=== PATIENT | male | born 1960 | race Two or more races ===

== ENCOUNTER 2017-02-10 16:03 | Inpatient (IN) | payer MEDICAID ==
[~2017-02-10] VITALS: Ht 160 cm; Wt 71.1 kg
[2017-02-10] VITALS (8 sets, daily range): BP systolic 94–128; BP diastolic 62–84; PULSE 65–79; RESP 16–18; TEMP 97.5–98.1; O2SAT 98–100
[2017-02-10] MEDS ORDERED: PROPOFOL 1000 MG/100 ML INJ 100 ML IV SCH (16:15)
--- NOTE | 2017-02-10 17:00 | RADRPT ---
EXAM DATE/TIME: 02/10/2017 16:49 [facility] COMPARISON: No previous studies available for comparison. INDICATIONS : Stroke Alert- Headaches with seizures. RADIATION DOSE: 38.54 CTDIvol (mGy) This report was called [place] [id number] MEDICAL HISTORY : Non-responsive. SURGICAL HISTORY : Non-responsive. ENCOUNTER: Initial ACUITY: 1 day PAIN SCALE: Non-responsive LOCATION: Bilateral cranial TECHNIQUE: Multiple contiguous axial images were obtained of the head. Using automated exposure control and adj ustment of the mA and/or kV according to patient size, radiation dose was kept as low as reasonably a chievable to obtain optimal diagnostic quality images. DICOM format image data is available electro nically for review and comparison. FINDINGS: There is extensive subarachnoid hemorrhage present especially around the basilar cisterns. CTA pendin g to assess for aneurysm. Mild ventricular dilatation. No acute bony abnormality. CONCLUSION: 1. Extensive subarachnoid hemorrhage. CTA pending to assess for aneurysm. Say Bassett MD on February 10, 2017 at 16:54 Board Certified Radiologist. This report was verified electronically.
--- NOTE | 2017-02-10 17:03 | HHI.HP ---
HPI Service Neurosurgery Primary Care Physician Unknown Chief Complaint: Unresponsive, intubated History of Present Illness Patient is a 54-year-old male transferred from [facility] for treatment of subarachnoid hemorrhage. The patient was reportedly at work this morning when he complained of a severe headache. He was taken to an office and given aspirin and some fluids. His mental status continued to decline. He was intubated by EMS in route to the emergency room with seizure activity and decerebrate posturing reported. He was GCS 3 in the [facility] emergency room initially with pupils reportedly 5 mm nonreactive. The patient reportedly began flexing or localizing with his upper extremities at some point in time in the emergency room. He was given 1000 mg of Keppra. Patient's blood pressure was 200/129 initially in the emergency room. The patient's initial CT of the head revealed a large amount of diffuse subarachnoid hemorrhage. He was transferred to [facility] Emergency room for further evaluation. Past Family Social History Allergies: Coded Allergies: No Known Allergies (Unverified , 02/10/17) Physical Exam Vital Signs Vital Signs Date Time Temp Pulse Resp B/P Pulse Ox O2 Delivery O2 Flow Rate FiO2 02/10/17 16:35 16 100 Ventilator 40 02/10/17 16:14 98.1 79 16 128/84 100 02/10/17 16:08 98 40 Physical Exam GENERAL: This is a well-nourished, well-developed patient, intubated and sedated on propofol. SKIN: No abrasions, contusion, rash noted. Skin warm and dry. HEAD: Atraumatic. Normocephalic. No scalp lacerations EYES: Sclerae are clear and nonicteric. Fundi not well seen. Bilateral cataracts. ENT: No facial edema or ecchymosis. No periorbital edema. No CSF otorrhea or rhinorrhea. No palpable facial fracture or deformity. Tympanic membranes are clear. Patient is intubated. Dentition appear intact. NECK: Trachea midline. No nuchal rigidity CARDIOVASCULAR: Regular rate and rhythm without murmurs, gallops, or rubs. RESPIRATORY: Clear to auscultation. Breath sounds equal bilaterally. No wheezes , rales, or rhonchi. GASTROINTESTINAL: Abdomen soft, positive bowel sounds, nondistended. No hepato- splenomegaly, or palpable masses. MUSCULOSKELETAL: Extremities without cyanosis, or edema. No joint tenderness, or edema noted. Dorsalis pedis pulses 2+ bilateral NEUROLOGICAL: Intubated, sedated on propofol. No response to voice. Does not follow commands Pupils 2 mm nonreactive Absent oculocephalic responses Mild bilateral corneal response Minimal facial grimacing to deep pain Mild cough response was suctioning Mild flexion left greater than right upper extremity to deep chest pain. No movement upper and lower extremities to extremity deep pain stimulation. Mary Ellen's response absent bilateral No ankle clonus Laboratory Imaging 02/10/2017 CT scan head [facility] images are reviewed. This study reveals a large amount of diffuse subarachnoid hemorrhage in the basilar and perimesencephalic cisterns and bilateral sylvian fissure with relatively mild hydrocephalus. 02/10/2017 CT angiogram and follow-up CT scan of the head images reviewed. Agree with findings as noted below: Neck CTA 02/10/17 1622 Signed Impressions: Service Date/Time: February 16:53 - CONCLUSION: 1. ET tube appears to terminate at the sofi. 2. No significant flow-limiting carotid artery stenosis or dissection. 3. Asymmetric vertebral arteries with slightly larger caliber left vertebral artery. There is likely moderate stenosis of the distal right vertebral artery near the vertebrobasilar junction with poststenotic dilatation rather than aneurysm. Roberto Esquivel MD Head CTA 02/10/17 0000 Signed Impressions: Service Date/Time: February 16:53 - CONCLUSION: 1. No evidence for large vessel occlusion. 2. Asymmetric distal vertebral arteries with small caliber right vertebral artery which is tortuous distally with apparent moderate stenosis. However, there is a 5 x 7 mm fusiform dilatation of the vertebral artery just beyond the focal stenosis which appears more prominent on this examination compared with the carotid CTA examination and is more than expected for simple poststenotic dilatation and therefore concerning for aneurysm. Further evaluation may be performed with cerebral angiography as indicated. Roberto Esquivel MD Head CT 02/10/17 0000 Signed Impressions: Service Date/Time: February 16:49 - CONCLUSION: 1. Extensive subarachnoid hemorrhage. CTA pending to assess for aneurysm. Say Bassett MD Assessment and Plan Assessment and Plan Impression: 1. Rather severe diffuse subarachnoid hemorrhage. Fusiform vertebral artery dilation. No other definite aneurysm noted. Plan: Admit intensive surgical care unit Continue ventilatory support Continue intravenous sedation Continue antihypertensive medications including nicardipine as needed for control of blood pressure, titrate for systolic blood pressure 110-130 Plan cerebral angiogram. Will discuss with neuroradiology Nimodipine for vasospasm prophylaxis [facility] seizure prophylaxis Dex Jimenez MD Feb 10, 2017 17:03
[2017-02-10] MEDS ORDERED: IOHEXOL 350 MG/ML 10 ML VIAL (for RAD DIAG) IV ONE (17:06)
--- NOTE | 2017-02-10 17:38 | RADRPT ---
EXAM DATE/TIME: 02/10/2017 16:53 [facility] COMPARISON: No previous studies available for comparison. INDICATIONS : Stroke Alert-Patient with headaches. IV CONTRAST: 100 cc Omnipaque 350 (iohexol) IV RADIATION DOSE: 28.76 CTDIvol (mGy) ; Combined studies MEDICAL HISTORY : Non-responsive. SURGICAL HISTORY : Non-responsive. ENCOUNTER: Initial ACUITY: 1 day PAIN SCALE: Non-responsive LOCATION: Bilateral cranial Elevated flow velocities and ICA/CCA ratios have been found to correlate with increased degrees of vessel stenosis, calculated as percentage of diameter relative to a normal segment of distal ICA/CCA. TECHNIQUE: Volumetric scanning was performed using a multirow detector CT scanner. The data was post processed with a variety of visualization algorithms including full-volume maximum intensity projection, multip lanar sliding thin-slab reformation, curved-planar reformation, and surface-rendering techniques. Us ing automated exposure control and adjustment of the mA and/or kV according to patient size, radiatio n dose was kept as low as reasonably achievable to obtain optimal diagnostic quality images. DICOM f ormat image data is available electronically for review and comparison. FINDINGS: Patient is intubated and the ET tube appears to terminate at the sofi. Visualized lung apices are c lear. AORTIC ARCH: There is a three-vessel origin of the great vessels from the aorta. No evidence of ostial narrowing. RIGHT CAROTID: The common carotid artery is intact. The carotid bulb has a normal configuration without ulceration o r narrowing. The internal carotid artery lumen is smooth without stenosis. The external carotid tiesha ry is intact. LEFT CAROTID: The common carotid artery is intact. The carotid bulb has a normal configuration without ulceration or narrowing. The internal carotid artery lumen is smooth without stenosis. The external carotid ar ivonne is intact. VERTEBRALS: The vertebral arteries are slightly asymmetric with larger caliber left vertebral artery. There is ec centric moderate stenosis of the distal right vertebral artery near the vertebrobasilar junction with circumferential dilatation of the vertebral artery beyond this region most likely reflecting post st enotic dilatation. CONCLUSION: 1. ET tube appears to terminate at the sofi. 2. No significant flow-limiting carotid artery stenosis or dissection. 3. Asymmetric vertebral arteries with slightly larger caliber left vertebral artery. There is likely moderate stenosis of the distal right vertebral artery near the vertebrobasilar junction with postste notic dilatation rather than aneurysm. Roberto Esquivel MD on February 10, 2017 at 17:22 Board Certified Radiologist. This report was verified electronically.
[2017-02-10] MEDS ORDERED: NS + KCL 20 MEQ INJ 1,000 ML IV SCH (17:53)
--- NOTE | 2017-02-10 17:57 | RADRPT ---
EXAM DATE/TIME: 02/10/2017 16:53 [facility] COMPARISON: No previous studies available for comparison. INDICATIONS : Stroke Alert- Patient with headaches. IV CONTRAST: 100 cc Omnipaque 350 (iohexol) IV RADIATION DOSE: 28.76 CTDIvol (mGy) ; Combined studies MEDICAL HISTORY : Non-responsive. SURGICAL HISTORY : Non-responsive. ENCOUNTER: Initial ACUITY: 1 day PAIN SCALE: Non-responsive LOCATION: Bilateral cranial TECHNIQUE: Volumetric scanning was performed using a multi-row detector CT scanner. The data was post processed with a variety of visualization algorithms including full volume maximum intensity pr ojection, multi-planar sliding thin slab reformation, curved planar reformation, and surface renderin g techniques. Using automated exposure control and adjustment of the mA and/or kV according to patie nt size, radiation dose was kept as low as reasonably achievable to obtain optimal diagnostic quality images. DICOM format image data is available electronically for review and comparison. FINDINGS: Anterior circulation: Intracranial internal carotid arteries are patent. There is no evidence for ane urysm, vessel truncation or stenosis, and no evidence for vascular malformation. Posterior circulation: Asymmetric distal vertebral arteries with small caliber right vertebral artery . Somewhat tortuous distal right vertebral artery with apparent moderate stenosis distally. There is 5 x 7 mm fusiform dilatation of the vertebral artery just beyond the focal stenosis. This appears mor e prominent than the carotid CTA examination on MIP images and is slightly more than expected for pos t-stenotic dilatation. Otherwise, vertebral arteries are patent with flow extending into the basilar artery and bilateral posterior cerebral arteries. No evidence for large vessel occlusion or vascular malformation. CONCLUSION: 1. No evidence for large vessel occlusion. 2. Asymmetric distal vertebral arteries with small caliber right vertebral artery which is tortuous d istally with apparent moderate stenosis. However, there is a 5 x 7 mm fusiform dilatation of the vert ebral artery just beyond the focal stenosis which appears more prominent on this examination compared with the carotid CTA examination and is more than expected for simple poststenotic dilatation and th erefore concerning for aneurysm. Further evaluation may be performed with cerebral angiography as ind icated. Roberto Esquivel MD on February 10, 2017 at 17:49 Board Certified Radiologist. This report was verified electronically.
[2017-02-10] MEDS ORDERED: MAGNESIUM HYDROXIDE SUSP 30 ML CUP PO PRN (18:00)
[2017-02-10] MEDS ORDERED: LORazepam 2 MG/ML VIAL IVP PRN (18:00)
[2017-02-10] MEDS ORDERED: ACETAMINOPHEN 325 MG TAB PO PRN (18:00)
[2017-02-10] MEDS ORDERED: RESP: ALBUTEROL 2.5 MG/3 ML NEB (PRN) INH (18:00)
[2017-02-10] MEDS ORDERED: LORazepam 2 MG/ML VIAL IV PRN (18:00)
[2017-02-10] MEDS ORDERED: PANTOPRAZOLE SODIUM 40 MG VIAL IV SCH (18:00)
[2017-02-10] MEDS ORDERED: ONDANSETRON HCL 4 MG/2 ML VIAL IV PRN ×2 (18:00)
[2017-02-10] MEDS ORDERED: BISACODYL 10 MG SUPP RECTAL PRN (18:00)
[2017-02-10] MEDS ORDERED: LACTULOSE SYRUP 20 GM/30 ML CUP PO PRN (18:00)
[2017-02-10] MEDS ORDERED: LABETALOL HCL 100 MG/20 ML VIAL IV PRN (18:00)
[2017-02-10] MEDS ORDERED: CHLORHEXIDINE GLUCONATE 2 % 1 PACK (2 CLOTHS) TOP PRN (18:00)
[2017-02-10] MEDS ORDERED: SODIUM CHLORIDE 0.9% FLUSH 10 ML FLUSH IV FLUSH PRN ×2 (18:00)
[2017-02-10] MEDS ORDERED: MISCELLANEOUS NURSING INFORMATION XX SCH (18:00)
[2017-02-10] MEDS: niMODipine 30 MG CAP PO SCH ×2 (18:00→23:49)
[2017-02-10] MEDS ORDERED: SENNOSIDES 8.6 MG TAB PO PRN (18:00)
--- NOTE | 2017-02-10 18:00 | PD ---
HPI Chief Complaint: Neuro Symptoms/ Deficits Time Seen by Provider: 16:14 Travel History International Travel<30 days: No Contact w/Intl Traveler<30days: No Traveled to known affect area: No History of Present Illness HPI Patient of unknown identity was brought in by EMS as a transfer from [facility]. EMS was called because this patient suddenly became unresponsive and started to have a seizure at a grocery store. They called 911. When they arrived the patient was seizing and they also noticed that he was posturing. They decided to intubate him at the scene. They took him to the emergency room at [facility], [place]. They did an emergent CT scan which showed large amount of subarachnoid hemorrhage. The ER physician there spoke with the neurosurgeon Dr. Jimenez who accepted the patient. Patient remained unresponsive the entire time and he was brought in getting bagged by EMS. There is no family or friend with him. His blood pressure upon arrival was 125 systolic. He is on a propofol drip. [facility] Past Medical History Narrative Medical Unknown Social History Tobacco Use: No Allergies-Medications (Allergen,Severity, Reaction): Coded Allergies: No Known Allergies (Unverified , 02/10/17) Comments Unknown Narrative Medication Unknown Review of Systems Except as stated in HPI: all other systems reviewed are Neg Physical Exam Narrative GENERAL: Unresponsive, intubated, artificially ventilated SKIN: Focused skin assessment warm/dry. HEAD: Atraumatic. Normocephalic. EYES: Pupils equal and round. 3 mm and reactive to light. No scleral icterus. No injection or drainage. ENT: ET tube. No nasal bleeding or discharge. NECK: Trachea midline. No JVD. CARDIOVASCULAR: Regular rate and rhythm. No murmur appreciated. RESPIRATORY: No accessory muscle use. Clear to auscultation. Breath sounds equal bilaterally. GASTROINTESTINAL: Abdomen soft, non-tender, nondistended. Hepatic and splenic margins not palpable. MUSCULOSKELETAL: No obvious deformities. No clubbing. No cyanosis. No edema. NEUROLOGICAL: GCS of 3 PSYCHIATRIC: Unable to assess Data Data Last Documented VS Vital Signs Date Time Temp Pulse Resp B/P Pulse Ox O2 Delivery O2 Flow Rate FiO2 02/10/17 17:21 100 100 02/10/17 16:35 16 Ventilator 02/10/17 16:14 98.1 79 128/[address] Brain W/O Iv Contrast(Rout) (02/10/17 ) Cta Brain W Iv Contrast W 3d (02/10/17 ) Propofol 1000 Mg/100 Ml Inj (Diprivan 10 (02/10/17 16:15) ^ Infusion (02/10/17 16:15) RASS (02/10/17 16:15) Neurological Rass Scale BRIAN.Q2H (02/10/17 16:15) Cta Neck W Iv Contrast W 3d (02/10/17 16:22) Iohexol 350 Inj (Omnipaque 350 Inj) (02/10/17 17:06) Resp Ventilation- Pressure (02/10/17 ) Admit Order (Ed Use Only) (02/10/17 17:49) MDM Medical Decision Making Medical Screen Exam Complete: Yes Emergency Medical Condition: Yes Medical Record Reviewed: Yes Differential Diagnosis Subarachnoid hemorrhage Narrative Course 5:45 PM I ordered a repeat plain CT of the head followed by CTA of the head. The neurosurgeon Dr. Jimenez was contacted emergently who came down to see the patient. He went to the CT scanner to see the patient's CAT scan especially the CTA after which she admitted the patient to the ICU under his service. Patient remained hemodynamically stable the entire time with a GCS of 3. Critical Care Narrative Aggregate critical care time was 30 minutes. Time to perform other separately billable procedures was not included in the critical care time. My time did not include minutes spent treating any other patients simultaneously or on activities that did not directly contribute to the patient's treatment. The services I provided to this patient were to treat and/or prevent clinically significant deterioration that could result in: Subarachnoid hemorrhage, unresponsive, artificially ventilated, I provided critical care services requiring my management, as noted below: Chart data review, documentation time, medication orders and management, vital sign assessments/reviewing monitor data, ordering and reviewing lab tests, ordering and interpreting/reviewing x-rays and diagnostic studies, care of the patient and discussion of the patient with the admitting physicians. Procedures EKG Prior to Arrival: No Physician Communication Physician Communication Dr. Jimenez Diagnosis Primary Impression: Subarachnoid hemorrhage Additional Impressions: Respiratory failure Qualified Code: J96.00 - Acute respiratory failure, unspecified whether with hypoxia or hypercapnia Unresponsive Admitting Information Admitting Physician Requests: it Tammy Yang MD Feb 10, 2017 18:00
[2017-02-10] MEDS: niCARdipine INJ 25 MG in SODIUM CHLOR 0.9% 250 ML INJ 250 ML IV SCH ×3 (18:15→23:48)
[2017-02-10] MEDS: NS + KCL 20 MEQ INJ 1,000 ML IV SCH (18:20)
[2017-02-10] MEDS: fentaNYL DRIP 250 ML IV SCH (18:30)
--- NOTE | 2017-02-10 20:26 | PD.PROCEDR ---
Procedure Note Procedure DATE: 02/10/17 PROCEDURE: Left radial arterial catheter placement INDICATION: Hemodynamic monitoring for underlying subarachnoid hemorrhage. DETAILS OF PROCEDURE Misbah test was performed and confirmed collateral flow. The skin was cleansed with Chloraprep. Additional barrier precautions included large sterile drape, sterile gloves, sterile gown, face mask, and hat. On the second attempt, the artery was accessed with Arrow radial art line kit. Using Seldinger technique 20 gauge arterial catheter was placed. The guide wire was removed. The catheter was connected to a transducer line and flushed with saline. The video monitor displayed normal arterial wave forms. The catheter was secured with 2-0 silk. A sterile dressing with antibiotic disc was applied. ESTIMATED BLOOD LOSS: minimal COMPLICATIONS: None Gema Alford MD Feb 10, 2017 20:26
[2017-02-10] MEDS: levETIRAcetam INJ 500 MG in SODIUM CHLORIDE 0.9% INJ 100 ML IV SCH (20:44)
--- NOTE | 2017-02-10 20:44 | RADRPT ---
EXAM DATE/TIME: 02/10/2017 20:34 [facility] COMPARISON: No previous studies available for comparison. INDICATIONS : Central line placement. MEDICAL HISTORY : Non-responsive. SURGICAL HISTORY : Non-responsive. ENCOUNTER: Initial ACUITY: 1 day PAIN SCORE: Non-responsive. LOCATION: Bilateral chest FINDINGS: Right subclavian catheter tip projects over the distal superior vena cava. No evidence of pneumothor ax. ET tube tip 2.1 cm above the sofi. The lungs are symmetrically aerated and clear. The heart is normal in size. CONCLUSION: ET and right subclavian catheter is in good position. No evidence of pneumothorax. Robert Prieto MD on February 10, 2017 at 20:42 Board Certified Radiologist. This report was verified electronically.
[2017-02-10] MEDS: PROPOFOL 1000 MG/100 ML INJ 100 ML IV SCH (20:45)
[2017-02-10] MEDS ORDERED: SODIUM CHLORIDE 0.9% FLUSH 10 ML FLUSH IV FLUSH SCH (21:00)
[2017-02-10] MEDS: SODIUM CHLORIDE 0.9% FLUSH 10 ML FLUSH IV FLUSH SCH (21:00)
--- NOTE | 2017-02-10 21:15 | PD.CONS ---
[facility] Service Critical Care Medicine Consult Requested By Dr. Jimenez Reason for Consult Critical care management of patient with respiratory failure and aneurysmal subarachnoid hemorrhage Primary Care Physician Unknown History of Present Illness Unable to obtain history from patient as he is intubated and unresponsive. History obtained from combination of discussion with ED physician at outside hospital, review of EMR and outside hospital records, discussion with . 56-year-old male who is transferred from [facility] for acute subarachnoid hemorrhage. Patient's states that he began having a headache yesterday. He took multiple doses of Tylenol at 1 AM, 4 AM, 6 AM due to severe headache. He went to work where he continued to complain of headache and had near syncope. He was lowered to the ground by bystanders. He was then given water and aspirin and 911 was called. When [facility] arrived he became unresponsive and had clinical seizure activity and decorticate posturing. He was intubated by [facility] and brought to [facility]. There he was also noted to have decorticate posturing and initially fixed and dilated pupils. During his ED course he reportedly was bringing his arms up in flexor posturing versus localizing. CT brain demonstrated large diffuse subarachnoid hemorrhage with mild hydrocephalus. He was given Keppra 1000 mg IV and was transferred to [facility] for neurosurgical consultation. His initial blood pressure at outside hospital prior to propofol was 200/129. Review of Systems ROS Limitations: Clinical Condition, Intubated, Altered Mental Status, Unresponsive Past Family Social History Allergies: Coded Allergies: No Known Allergies (Unverified , 02/10/17) Past Medical History Gout Hypertension Past Surgical History No past surgical history Reported Medications His is not completely certain of his medication list She states he is on metoprolol and medications for gout Family History Father of a stroke in his 50s. Mother had diabetes is not aware of any family history of cerebral aneurysm Social History Smokes 1-2 packs per day for over 25 years drinks 2 beers per night and more on the weekends. 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 He has been under a lot of stress related to this. Physical Exam Vital Signs Vital Signs Date Time Temp Pulse Resp B/P Pulse Ox O2 Delivery O2 Flow Rate FiO2 8/3/17 20:23 100 40 02/10/17 18:00 40 02/10/17 17:21 100 100 02/10/17 17:21 100 40 02/10/17 16:35 16 100 Ventilator 40 02/10/17 16:14 98.1 79 16 128/84 100 02/10/17 16:08 98 40 Physical Exam Temp 98.1 rectal, pulse 70s, respiratory rate 16, blood pressure 152/74, sats 98 % Drips: Propofol 35 micrograms per KG per minute GENERAL: Well-nourished, well-developed patient who is orotracheally intubated SKIN: Warm and dry. HEAD: Atraumatic. Normocephalic. EYES: Bilateral pupils are round. Right pupil 4 mm and reactive to 2 mm, left pupil 5 mm and reactive to 3mm. No scleral icterus. No injection or drainage. ENT: No nasal bleeding or discharge. Mucous membranes pink and moist. NECK: Trachea midline. No JVD. CARDIOVASCULAR: Regular rate and rhythm, sinus rhythm on the monitor with rate in the 70s. No murmurs rubs or gallops. RESPIRATORY: No accessory muscle use. Clear to auscultation. Breath sounds equal bilaterally. GASTROINTESTINAL: Abdomen soft, non-tender, nondistended. Bowel sounds present. MUSCULOSKELETAL: Extremities without clubbing, cyanosis, or edema. No obvious deformities. NEUROLOGICAL: No eye opening. +bilateral corneal reflex. + cough +Facial grimace to central deep noxious stimuli. Flexor posturing of bilateral upper extremities to central noxious stimuli. Bilateral lower extremities extend with central noxious stimuli. No response to Babinski. Assessment and Plan Assessment and Plan NEURO: Aneurysmal subarachnoid hemorrhage (H/H 5/Fuller 3/4) Right vertebral artery aneurysm Mild hydrocephalus Acute Seizure Coma CT brain 3diffuse subarachnoid hemorrhage CTA brain/neck 3tortuous right vertebral artery with moderate stenosis. There is 5-7 mm fusiform dilatation of the vertebral artery concerning for aneurysm. Patient will need ventriculostomy Discussed with Dr. Jimenez who plans to proceed with angiogram in a.m. Nimodipine 60 mg by mouth every 4 hours Nicardipine target systolic blood pressure 110 to 130 Keppra 500 g IV every 12 hours Pravastatin 40 mg by mouth daily No anticoagulants Monitor serum sodium and avoid hyponatremia Target PaCO2 35-40 Tylenol/cooling for temp >100.4. Obtain portable EEG Propofol for sedation. Fentanyl for analgosedation RESP: Acute respiratory failure Tobacco abuse Obtained chest x-ray. ET tube in satisfactory position above the sofi. Lungs are clear. Ventilator bundle PRVC tidal volume 500/rate 18/I time DuoNeb every 6 hours. Albuterol every 2 hours as needed. No ventilatory weaning until patient is stabilized CV: I am placing art line for hemodynamic monitoring. Nicardipine to maintain systolic blood pressure 110-130. 0.9 NaCl with 20 mEq of KCl per liter at 80 mL per hour Troponin negative at outside hospital EKG normal sinus rhythm intraventricular conduction delay with no acute ST or T- wave abnormalities. Obtain 2-D echo GI: Nothing by mouth. OGT tube to low intermittent wall suction. FEN/RENAL: Chandra catheter in place. Monitor intake and output. Monitor electrolytes. Replace electrolytes as indicated per ICU electrolyte replacement protocol. Received IV contrast 8/3. Avoid nephrotoxins. Creatinine 0.71 at outside hospital. ID: Monitor for signs and symptoms of infection HEME: Monitor CBC He was not on anticoagulants. Coags in a.m. MSK: Gout to bring in medication list ENDO: Monitor bedside glucose and initiate low-dose insulin sliding scale as indicated PROPH: SCDs and teds for DVT prophylaxis. No pharmacologic DVT prophylaxis due to acute subarachnoid hemorrhage. Protonix 40 mg IV daily for stress ulcer prophylaxis. ACCESS: Left radial art line placed 8/3 #1. Right subclavian central venous line placed 8/3 #1 Patient has acute subarachnoid hemorrhage and is at risk for further decompensation, rebleeding. He is hypertensive and in need of emergent blood pressure control and close hemodynamic monitoring. Placing art line and placing on nicardipine drip. Discussed with neurosurgery. Patient will need angiogram and ventriculostomy. Patient's updated in detail and multiple questions answered. Critical care time 75 minutes exclusive of separately billable procedures. Gema Alford MD Feb 10, 2017 21:15
--- NOTE | 2017-02-10 21:18 | PD.PROCEDR ---
Central Line Procedure DATE: 02/10/17 CENTRAL LINE PLACEMENT: Right subclavian vein. INDICATION: Central venous access CONSENT Informed consent for procedure was obtained from patient's after discussion of risks, benefits, alternatives. Signed consent is on the chart. DESCRIPTION OF THE PROCEDURE The patient was placed in supine position, mild Trendelenburg. The skin was cleansed with Chloraprep. Additional barrier precautions included large sterile drape, sterile gloves, sterile gown, face mask, and hat. 1 % lidocaine was used for local anesthesia. On single attempt, the vein was accessed with an introducer needle. The guide wire was advanced and the tract was dilated. Using Seldinger technique a 7 Syriac 20 cm antimicrobial coated triple-lumen catheter was advanced to a depth of 17 centimeters. The guide wire was removed. All ports had good return of dark venous blood and flushed easily with saline. The central line was secured with 2.0 silk. A sterile dressing with antibiotic disc was applied. ESTIMATED BLOOD LOSS: Minimal COMPLICATIONS: No apparent complications. STAT chest x-ray demonstrated satisfactory central venous line position. No PTX or other complication noted. Gema Alford MD Feb 10, 2017 21:18
[2017-02-10] MEDS ORDERED: POTASSIUM CHLOR 40 MEQ PREMIX 100 ML IV PRN ×2 (21:30)
[2017-02-10] MEDS ORDERED: POTASSIUM PHOSPHATE MONOBASIC 500 MG TAB PO/TUBE PRN (21:30)
[2017-02-10] MEDS ORDERED: POTASSIUM PHOSPHATE MONOBASIC 500 MG TAB PO PRN (21:30)
[2017-02-10] MEDS ORDERED: MAGNESIUM SULFATE INJ 2 GM in SODIUM CHLORIDE 0.9% INJ 96 ML IV PRN (21:30)
[2017-02-10] MEDS ORDERED: SODIUM PHOSPHATE INJ 30 MMOL in SODIUM CHLOR 0.9% 250 ML INJ 240 ML IV PRN (21:30)
[2017-02-10] MEDS ORDERED: MAGNESIUM SULFATE INJ 4 GM in SODIUM CHLORIDE 0.9% INJ 92 ML IV PRN (21:30)
[2017-02-10] MEDS ORDERED: MAGNESIUM OXIDE 400 MG TAB PO PRN (21:30)
[2017-02-10] MEDS ORDERED: POTASSIUM PHOSPHATE INJ 30 MMOL in SODIUM CHLOR 0.9% 250 ML INJ 250 ML IV PRN (21:30)
[2017-02-10] MEDS ORDERED: POTASSIUM CHLOR 20 MEQ PREMIX 100 ML IV PRN ×2 (21:30)
[2017-02-10] MEDS ORDERED: POTASSIUM CHLORIDE 25 MEQ EFFERVESCENT TAB PO PRN (21:30)
[2017-02-10 21:34] LABS: BLOOD GAS BASE EXCESS -2.8 mmol/L (-2-2); BLOOD GAS CARBOXYHEMOGLOBIN 1.1 % (0-4); BLOOD GAS HCO3 21 mmol/L (22-26); BLOOD GAS METHEMOGLOBIN 1.2 % (0-2); BLOOD GAS O2 HGB SATURATION 96 % (90-100); BLOOD GAS OXYGEN CONTENT 20.3 Vol % (12.0-20.0); BLOOD GAS PCO2 33 mmHg (38-42); BLOOD GAS PO2 119 mmHg (61-120); BLOOD GAS TOTAL HGB 14.9 G/DL (12.0-16.0); CRITICAL VALUE NO; OXYGEN DEVICE VENTILATOR; TEMP CORR TO 98.6
[2017-02-10 21:35] LABS: DRAW SITE ART LINE; FIO2 40 %; STAT NO; VENT SETTINGS PRVC/AC
[2017-02-10] MEDS ORDERED: GLUCAGON 1 MG/ML VIAL OTHER PRN (21:45)
[2017-02-10] MEDS ORDERED: DEXTROSE 50% IN WATER 50 ML VIAL(D50) IV PRN (21:45)
[2017-02-10] MEDS: INSULIN ASPART SUPPLEMENTAL SCALE SQ SCH (21:45)
[2017-02-10] MEDS: RESP: ALBUTEROL 2.5 MG/IPRATROPIUM 0.5 MG NEB (SCH) INH (22:34)
[2017-02-10] MEDS: DOCUSATE SODIUM 50 MG/SENNA 8.6 MG TAB PO SCH (23:51)
[2017-02-10] MEDS: PRAVASTATIN SOD 40 MG TAB OG-TUBE SCH (23:51)
[2017-02-11] VITALS (13 sets, daily range): BP systolic 100–183; BP diastolic 52–78; PULSE 63–91; RESP 18–25; TEMP 97.9–100.2; O2SAT 94–100
[2017-02-11] MEDS: niMODipine 30 MG CAP PO SCH ×6 (02:00→22:39)
[2017-02-11 03:41] LABS: AUTOMATED NEUTROPHIL # 7.7 TH/MM3 (1.8-7.7); BASOPHIL % 0.5 % (0.0-2.0); EOSINOPHIL % 0.3 % (0.0-4.0); HEMATOCRIT 40.8 % (39.0-51.0); HEMO FLAGS DIFF FINAL; LYMPH % 11.1 % (9.0-44.0); LYMPHOCYTE # 1.1 TH/MM3 (1.0-4.8); MEAN CELL VOLUME 91.5 FL (80.0-100.0); MEAN CORPUSCULAR HEMOGLOBIN 30.4 PG (27.0-34.0); MEAN CORPUSCULAR HGB CONC 33.3 % (32.0-36.0); MONO % 8.7 % (0.0-8.0); NEUT % 79.4 % (16.0-70.0); PLATELET COUNT 270 TH/MM3 (150-450); RED BLOOD COUNT 4.46 MIL/MM3 (4.50-5.90); RED CELL DISTRIBUTION WIDTH 14.3 % (11.6-17.2); WHITE BLOOD COUNT 9.7 TH/MM3 (4.0-11.0)
[2017-02-11] MEDS: INSULIN ASPART SUPPLEMENTAL SCALE SQ SCH ×4 (03:45→21:45)
[2017-02-11 03:52] LABS: APTT (PATIENT) 32.4 SEC (24.3-30.1); PROTHROMBIN TIME - PATIENT 10.9 SEC (9.8-11.6)
[2017-02-11] MEDS ORDERED: CHLORHEXIDINE GLUCONATE 2 % 1 PACK (2 CLOTHS) TOP SCH (04:00)
[2017-02-11 04:11] LABS: BLOOD GAS BASE EXCESS -1.8 mmol/L (-2-2); BLOOD GAS CARBOXYHEMOGLOBIN 1.1 % (0-4); BLOOD GAS HCO3 22 mmol/L (22-26); BLOOD GAS METHEMOGLOBIN 1.1 % (0-2); BLOOD GAS O2 HGB SATURATION 96 % (90-100); BLOOD GAS OXYGEN CONTENT 18.6 Vol % (12.0-20.0); BLOOD GAS PCO2 35 mmHg (38-42); BLOOD GAS PO2 118 mmHg (61-120); BLOOD GAS TOTAL HGB 13.6 G/DL (12.0-16.0); TEMP CORR TO 98.6
[2017-02-11 04:12] LABS: CRITICAL VALUE NO; DRAW SITE ART LINE; FIO2 40 %; OXYGEN DEVICE VENT; VENT SETTINGS SEE COMMENTS
[2017-02-11 04:13] LABS: STAT NO; ULNAR PULSE PRESENT
[2017-02-11 04:16] LABS: ALT (GPT) 20 U/L (12-78); ANION GAP 8 MEQ/L (5-15); AST (GOT) 13 U/L (15-37); BICARBONATE 23.9 MEQ/L (21.0-32.0); BLOOD UREA NITROGEN 8 MG/DL (7-18); CHLORIDE 109 MEQ/L (98-107); GLOMERULAR FILTRATION RATE 78 ML/MIN (>89); POTASSIUM 3.9 MEQ/L (3.5-5.1); SODIUM (NA) 141 MEQ/L (136-145)
[2017-02-11 04:18] LABS: ALKALINE PHOSPHATASE 50 U/L (45-117); TOTAL BILIRUBIN ADULT 0.7 MG/DL (0.2-1.0)
[2017-02-11] MEDS: PROPOFOL 1000 MG/100 ML INJ 100 ML IV SCH ×3 (05:55→17:33)
[2017-02-11] MEDS: NS + KCL 20 MEQ INJ 1,000 ML IV SCH ×2 (05:57→17:33)
[2017-02-11] MEDS: RESP: ALBUTEROL 2.5 MG/IPRATROPIUM 0.5 MG NEB (SCH) INH ×4 (06:07→19:57)
[2017-02-11] MEDS: fentaNYL DRIP 250 ML IV SCH (06:11)
--- NOTE | 2017-02-11 06:28 | RADRPT ---
EXAM DATE/TIME: 02/11/2017 05:09 [place] COMPARISON: CHEST SINGLE AP, February 10, 2017, 20:34. INDICATIONS : Respiratory failure. MEDICAL HISTORY : Non-responsive. SURGICAL HISTORY : Non-responsive. ENCOUNTER: Subsequent ACUITY: 2 days PAIN SCORE: Non-responsive. LOCATION: Bilateral chest FINDINGS: The cardiac silhouette is enlarged in transverse diameter. Support lines and tubes are in satisfactor y position. There is left lower lobe atelectasis versus pneumonia. The right lung is free of acute pa renchymal opacity. CONCLUSION: 1. Left lower lobe atelectasis versus pneumonia. The findings are improved when compared with the radha or exam. Daniele Harman MD on February 11, 2017 at 6:25 Board Certified Radiologist. This report was verified electronically.
[2017-02-11] MEDS: CHLORHEXIDINE 0.12% (ORAL KIT) 15 ML CUP MT SCH ×2 (08:34→19:57)
[2017-02-11] MEDS ORDERED: PANTOPRAZOLE SODIUM 40 MG VIAL IVP SCH (09:00)
--- NOTE | 2017-02-11 09:07 | HHI.NSPN ---
(Leandro Brambila) History Chief Complaint: Unable to obtain due to patient's clinical condition. (Leandro Brambila) Interval History 02/10: Patient is a 54-year-old male transferred from [facility] for treatment of subarachnoid hemorrhage. The patient was reportedly at work this morning when he complained of a severe headache. He was taken to an office and given aspirin and some fluids. His mental status continued to decline. He was intubated by EMS in route to the emergency room with seizure activity and decerebrate posturing reported. He was GCS 3 in the [facility] emergency room initially with pupils reportedly 5 mm nonreactive. The patient reportedly began flexing or localizing with his upper extremities at some point in time in the emergency room. He was given 1000 mg of Keppra. Patient's blood pressure was 200/129 initially in the emergency room. The patient's initial CT of the head revealed a large amount of diffuse subarachnoid hemorrhage. He was transferred to [facility] Emergency room for further evaluation. 02/11: The patient remains intubated and mechanically ventilated. He is sedated with propofol and fentanyl. Nursing reports that the patient had tremulous activity as she lightened his sedation this morning. She states that he would start with just being touched and stop once the stimulus was removed. She also reports that the patient would raise the extremities of the bed with decerebrate posturing. She says the pupils were a 2 and sluggish. The nicardipine drip is off when seen. (Leandro Brambila) System Review Comments Unable to obtain due to patient's clinical condition. (Leandro Brambila) Exam Results Vital Signs Date Time Temp Pulse Resp B/P Pulse Ox O2 Delivery O2 Flow Rate FiO2 02/11/17 08:00 99.1 86 21 128/65 94 02/11/17 08:00 40 02/11/17 07:00 Mechanical Ventilator Intake and Output 02/10/17 02/10/17 02/11/17 08:00 16:00 00:00 Intake Total 1113 ml Output Total 2250 ml Balance -1137 ml (Leandro Brambila) Physical Examination GENERAL: The patient remains intubated and mechanically ventilated with propofol and fentanyl drips infusing. SKIN: Warm, dry & intact w/o any apparent rashes, ulcerations or other lesions. HEENT: Normocephalic, atraumatic. Pupils 2mm slightly irregular with questionable sluggish response. Orally intubated. OGT. NECK: No JVD, trachea midline. CARDIOVASCULAR: S1S2 w/RRR w/o M/G/R, radial & pedal pulses 2+ bilaterally, cap refill < 2 sec, no pedal edema. Monitor is sinus rhythm w/o any ectopy noted. The nicardipine drip is off when seen. RESPIRATORY: CTAB w/o W/R/R, equal excursion, nonlaboured, intubated & mechanically ventilated. GASTROINTESTINAL: Abdomen soft, nontender, positive bowel sounds. OGT to LIWS w/ brownish particulate drainage. GENITOURINARY: Chandra catheter to BSD w/clear yellow urine. MUSCULOSKELETAL: No evident deformity or clubbing. NEUROLOGICAL: Intubated, on propofol & fentanyl drips, GCS 4T (E1 V1T M2) No eye opening to voice or noxious stimuli. Pupils 2mm slightly irregular with questionable sluggish response. Does not follow commands. Trace movement of right hand noticed intermittently, did grasp when practitioner placed his hand into patient's palm but not repeated at subsequent testing. Trace movement to right hand w/localised noxious stimuli to left toe nailbed but not to LLE itself, trace movement w/noxious stimuli to RLE, none to BUE. Trace movement of right hand and RLE to central noxious stimuli. (Leandro Brambila) Lab, Micro, Other Results Allergies Coded Allergies Type Severity Reaction Last Updated Verified No Known Allergies 02/10/17 No Recent Impressions Chest X-Ray 02/11/17 0000 Signed Impressions: Service Date/Time: Saturday, February 11, 2017 05:09 - CONCLUSION: 1. Left lower lobe atelectasis versus pneumonia. The findings are improved when compared with the prior exam. Daniele Harman MD Neck CTA 02/10/17 1622 Signed Impressions: Service Date/Time: February 16:53 - CONCLUSION: 1. ET tube appears to terminate at the sofi. 2. No significant flow-limiting carotid artery stenosis or dissection. 3. Asymmetric vertebral arteries with slightly larger caliber left vertebral artery. There is likely moderate stenosis of the distal right vertebral artery near the vertebrobasilar junction with poststenotic dilatation rather than aneurysm. Roberto Esquivel MD Head CTA 02/10/17 0000 Signed Impressions: Service Date/Time: February 16:53 - CONCLUSION: 1. No evidence for large vessel occlusion. 2. Asymmetric distal vertebral arteries with small caliber right vertebral artery which is tortuous distally with apparent moderate stenosis. However, there is a 5 x 7 mm fusiform dilatation of the vertebral artery just beyond the focal stenosis which appears more prominent on this examination compared with the carotid CTA examination and is more than expected for simple poststenotic dilatation and therefore concerning for aneurysm. Further evaluation may be performed with cerebral angiography as indicated. Roberto Esquivel MD Head CT 02/10/17 0000 Signed Impressions: Service Date/Time: February 16:49 - CONCLUSION: 1. Extensive subarachnoid hemorrhage. CTA pending to assess for aneurysm. Say Bassett MD Chest X-Ray 02/10/17 0000 Signed Impressions: Service Date/Time: February 20:34 - CONCLUSION: ET and right subclavian catheter is in good position. No evidence of pneumothorax. Robert Prieto MD /2/[id number]///178// 06:00 18:00 06:00 18:00 06:00 18:00 Intake Total 1903 ml Output Total 3050 ml Balance -1147 ml Intake IV Total 1644 ml Lipid 259 ml Output Urine Total 2900 ml Gastric Drainage Total 150 ml # Bowel Movements 0 Laboratory Tests Test 02/10/17 02/11/17 02/11/17 21:20 03:30 03:55 Blood Gas Puncture Site ART LINE ART LINE Blood Gas Patient Temperature 98.6 98.6 Blood Gas HCO3 21 mmol/L 22 mmol/L Blood Gas Base Excess -2.8 mmol/L -1.8 mmol/L Blood Gas Oxygen Saturation 96 % 96 % Arterial Blood pH 7.42 7.42 Arterial Blood Partial 33 mmHg 35 mmHg Pressure CO2 Arterial Blood Partial 119 mmHg 118 mmHg Pressure O2 Arterial Blood Oxygen Content 20.3 Vol % 18.6 Vol % Arterial Blood 1.1 % 1.1 % Carboxyhemoglobin Arterial Blood Methemoglobin 1.2 % 1.1 % Blood Gas Hemoglobin 14.9 G/DL 13.6 G/DL Oxygen Delivery Device VENTILATOR VENT Blood Gas Ventilator Setting PRVC/AC SEE COMMENTS Blood Gas Inspired Oxygen 40 % 40 % White Blood Count 9.7 TH/MM3 Red Blood Count 4.46 MIL/MM3 Hemoglobin 13.6 GM/DL Hematocrit 40.8 % Mean Corpuscular Volume 91.5 FL Mean Corpuscular Hemoglobin 30.4 PG Mean Corpuscular Hemoglobin 33.3 % Concent Red Cell Distribution Width 14.3 % Platelet Count 270 TH/MM3 Mean Platelet Volume 6.4 FL Neutrophils (%) (Auto) 79.4 % Lymphocytes (%) (Auto) 11.1 % Monocytes (%) (Auto) 8.7 % Eosinophils (%) (Auto) 0.3 % Basophils (%) (Auto) 0.5 % Neutrophils # (Auto) 7.7 TH/MM3 Lymphocytes # (Auto) 1.1 TH/MM3 Monocytes # (Auto) 0.9 TH/MM3 Eosinophils # (Auto) 0.0 TH/MM3 Basophils # (Auto) 0.0 TH/MM3 CBC Comment DIFF FINAL Differential Comment Prothrombin Time 10.9 SEC Prothromb Time International 1.0 RATIO Ratio Activated Partial 32.4 SEC Thromboplast Time Sodium Level 141 MEQ/L Potassium Level 3.9 MEQ/L Chloride Level 109 MEQ/L Carbon Dioxide Level 23.9 MEQ/L Anion Gap 8 MEQ/L Blood Urea Nitrogen 8 MG/DL Creatinine 0.85 MG/DL Estimat Glomerular Filtration 78 ML/MIN Rate Random Glucose 117 MG/DL Calcium Level 7.9 MG/DL Phosphorus Level 2.0 MG/DL Magnesium Level 2.0 MG/DL Total Bilirubin 0.7 MG/DL Aspartate Amino Transf 13 U/L (AST/SGOT) Alanine Aminotransferase 20 U/L (ALT/SGPT) Alkaline Phosphatase 50 U/L Total Protein 5.9 GM/DL Albumin 2.8 GM/DL Vital Signs Date Time Temp Pulse Resp B/P Pulse Ox O2 Delivery O2 Flow Rate FiO2 02/11/17 08:00 99.1 86 21 128/65 94 02/11/17 08:00 40 8/4/17 07:41 100 40 02/11/17 07:41 100 40 02/11/17 07:00 67 02/11/17 07:00 100 Mechanical Ventilator 40 02/11/17 04:15 100 40 02/11/17 04:00 40 02/11/17 03:00 97.9 63 18 100/52 02/11/17 01:23 100 40 02/11/17 00:00 40 02/10/17 23:00 65 02/10/17 23:00 65 18 94/62 100 02/10/17 22:35 100 40 02/10/17 21:45 100 40 02/10/17 20:23 100 40 02/10/17 20:00 40 02/10/17 19:00 100 Mechanical Ventilator 40 02/10/17 19:00 97.5 65 18 126/64 100 02/10/17 18:00 40 02/10/17 17:21 100 100 02/10/17 17:21 100 40 02/10/17 16:35 16 100 Ventilator 40 02/10/17 16:14 98.1 79 16 128/84 100 02/10/17 16:08 98 40 (Leandro Brambila) Medical Decision Making Impression and Plan Impression: 1. Rather severe diffuse subarachnoid hemorrhage. Fusiform vertebral artery dilation. No other definite aneurysm noted. Patient w/o any apparent change in neuro status. Plan: Critical care management per [employer]. Frequent neuro checks. Continue ventilatory support. Continue intravenous sedation. Continue antihypertensive medications, including nicardipine, as needed for control of blood pressure, titrate for systolic blood pressure 110-130 Plan is to do cerebral angiogram and Dr Jimenez will discuss with Neuroradiology. Nimodipine for vasospasm prophylaxis. Keppra for seizure prophylaxis. (Leandro Brambila) Attending Statement I have personally seen and examined the patient on the date of this note. Pertinent documentation and study results have been reviewed by the undersigned. I have personally developed the treatment plan and performed medical decision making. Agree with findings, exam, and treatment plan as noted above. This afternoon post angiogram patient neurologic status improving, arising to voice and following commands. Cerebral angiogram results reviewed with radiology this afternoon. Large wide- based distal vertebral artery aneurysm with mild to moderate irregularity along the dome. Per interventional radiology, patient requires transfer to tertiary care facility for potential endovascular treatment. Discussed with neurosurgery via [facility] with patient accepted for transfer (Dex Jimenez MD) Leandro Brambila Feb 11, 2017 09:07 Dex Jimenez MD Feb 11, 2017 20:32
[2017-02-11] MEDS: levETIRAcetam INJ 500 MG in SODIUM CHLORIDE 0.9% INJ 100 ML IV SCH ×2 (09:09→19:58)
[2017-02-11] MEDS: DOCUSATE SODIUM 50 MG/SENNA 8.6 MG TAB PO SCH ×2 (09:11→19:57)
[2017-02-11] MEDS: SODIUM CHLORIDE 0.9% FLUSH 10 ML FLUSH IV FLUSH SCH ×2 (09:11→19:57)
--- NOTE | 2017-02-11 09:33 | EKG ---
Date Performed: 02/10/2017 Time Performed: 20:35:27 PTAGE: 89 years EKG: Sinus rhythm POSSIBLE LEFT ATRIAL ENLARGEMENT POSSIBLE RIGHT VENTRICULAR CONDUCTION DELAY PROLONGED QT INTERVAL A BNORMAL ECG NO PREVIOUS TRACING DOCTOR: Daniele Barrientos Interpretating Date/Time 02/11/2017 09:31:35
[2017-02-11 11:51] LABS: BLOOD GAS BASE EXCESS -2.5 mmol/L (-2-2); BLOOD GAS CARBOXYHEMOGLOBIN 1.2 % (0-4); BLOOD GAS HCO3 21 mmol/L (22-26); BLOOD GAS METHEMOGLOBIN 1.1 % (0-2); BLOOD GAS O2 HGB SATURATION 97 % (90-100); BLOOD GAS OXYGEN CONTENT 18.4 Vol % (12.0-20.0); BLOOD GAS PCO2 28 mmHg (38-42); BLOOD GAS PO2 133 mmHg (61-120); BLOOD GAS TOTAL HGB 13.4 G/DL (12.0-16.0); CRITICAL VALUE NO; DRAW SITE ART LINE; FIO2 40 %; OXYGEN DEVICE VENTILATOR; STAT NO; TEMP CORR TO 98.6; VENT SETTINGS SEE COMMENTS
--- NOTE | 2017-02-11 13:35 | MG ---
cc: KEYSHAWN SAALZAR M.D. Lab No: [id number] Date: 02/11/2017 Age: Sex: M Race: __ [id number] TECHNIQUE 17 channel EEG. DESCRIPTION The background rhythm reveals mild slowing in the theta frequency at about 5-6 Hz amplitude, 20 microvolts to 30 microvolts. There is fairly prominent muscle artifact seen. I do not see any gross epileptiform features present. There are no lateralizing features. INTERPRETATION Abnormal study consistent with a moderate encephalopathy. No epileptiform discharges are seen. However, there is some compromise to the study with the muscle artifact. MD MODESTO Chandler/SHARMAINE /1:04 PM /1:25 PM
--- NOTE | 2017-02-11 14:25 | HHI.CCPN ---
Subjective Remarks/Hospital Course Hospital Course: Unable to obtain history from patient as he is intubated and unresponsive. History obtained from combination of discussion with ED physician at outside hospital, review of EMR and outside hospital records, discussion with . 56-year-old male who is transferred from [facility] for acute subarachnoid hemorrhage. Patient's states that he began having a headache yesterday. He took multiple doses of Tylenol at 1 AM, 4 AM, 6 AM due to severe headache. He went to work where he continued to complain of headache and had near syncope. He was lowered to the ground by bystanders. He was then given water and aspirin and 911 was called. When [facility] arrived he became unresponsive and had clinical seizure activity and decorticate posturing. He was intubated by [facility] and brought to [facility]. There he was also noted to have decorticate posturing and initially fixed and dilated pupils. During his ED course he reportedly was bringing his arms up in flexor posturing versus localizing. CT brain demonstrated large diffuse subarachnoid hemorrhage with mild hydrocephalus. He was given Keppra 1000 mg IV and was transferred to [facility] for neurosurgical consultation. His initial blood pressure at outside hospital prior to propofol was 200/129. subjective: 02/11: no significant change. BP better controlled. still posturing on neuro exam. pupils equal. Objective Vital Signs Date Time Temp Pulse Resp B/P Pulse Ox O2 Delivery O2 Flow Rate FiO2 02/11/17 12:00 40 02/11/17 12:00 98.5 68 20 108/57 100 02/11/17 07:00 Mechanical Ventilator Intake and Output 02/10/17 02/10/17 02/11/17 08:00 16:00 00:00 Intake Total 1113 ml Output Total 2250 ml Balance -1137 ml Result Diagram: 02/11/17 0330 02/11/17 0330 Other Results Laboratory Tests Test 02/10/17 02/11/17 02/11/17 21:20 03:55 11:41 Blood Gas Puncture Site ART LINE ART LINE ART LINE Blood Gas Patient Temperature 98.6 98.6 98.6 Blood Gas HCO3 21 mmol/L 22 mmol/L 21 mmol/L (22-26) (22-26) (22-26) Blood Gas Base Excess -2.8 mmol/L -1.8 mmol/L -2.5 mmol/L (-2-2) (-2-2) (-2-2) Blood Gas Oxygen Saturation 96 % (90-100) 96 % (90-100) 97 % (90-100) Arterial Blood pH 7.42 7.42 7.48 (7.380-7.420) (7.380-7.420) (7.380-7.420) Arterial Blood Partial 33 mmHg (38-42) 35 mmHg (38-42) 28 mmHg (38-42) Pressure CO2 Arterial Blood Partial 119 mmHg 118 mmHg 133 mmHg Pressure O2 (61-120) (61-120) (61-120) Arterial Blood Oxygen Content 20.3 Vol % 18.6 Vol % 18.4 Vol % (12.0-20.0) (12.0-20.0) (12.0-20.0) Arterial Blood 1.1 % (0-4) 1.1 % (0-4) 1.2 % (0-4) Carboxyhemoglobin Arterial Blood Methemoglobin 1.2 % (0-2) 1.1 % (0-2) 1.1 % (0-2) Blood Gas Hemoglobin 14.9 G/DL 13.6 G/DL 13.4 G/DL (12.0-16.0) (12.0-16.0) (12.0-16.0) Oxygen Delivery Device VENTILATOR VENT VENTILATOR Blood Gas Ventilator Setting PRVC/AC SEE COMMENTS SEE COMMENTS Blood Gas Inspired Oxygen 40 % 40 % 40 % Objective Remarks GENERAL: middle-aged male, lying in bed, orotracheally intubated SKIN: Warm and dry. HEAD: Atraumatic. Normocephalic. EYES: Bilateral pupils are round, 2mm bilaterally. No scleral icterus. No injection or drainage. ENT: No nasal bleeding or discharge. Mucous membranes pink and moist. NECK: Trachea midline. No JVD. CARDIOVASCULAR: Regular rate and rhythm, sinus rhythm on the monitor with rate in the 70s. RESPIRATORY: No accessory muscle use. Breath sounds equal bilaterally. PRVC fio2 40%. GASTROINTESTINAL: Abdomen soft, non-tender, nondistended. no guarding. MUSCULOSKELETAL: Extremities without clubbing, cyanosis, or edema. No obvious deformities. NEUROLOGICAL: weak eye opening to deep stimulation. +bilateral corneal reflex. + cough +Facial grimace to central deep noxious stimuli. ? flexor vs. withdraw of bilateral upper extremities to central stimuli. Bilateral lower extremities extend with central noxious stimuli. No response to Babinski. A/P Assessment and Plan Assessment: 56yM post-bleed day 2 s/p spontaneous subarachnoid hemorrhage. I have talked with IR and will plan for 4-vessel diagnostic angiography today. will also talk with neurosurgery about possible EVD given poor neurologic exam. Agree with continued tight blood pressure control, nimodipine, TCDs, frequent neuro checks. minimize sedation to get good neuro exam as long as BP allows. Remains very critically ill with multi-organ dysfunction secondary to SAH; remains high risk for rebleed. NEURO: Aneurysmal subarachnoid hemorrhage (H/H 5/Fuller 09/11) Right vertebral artery aneurysm Mild hydrocephalus Acute Seizure Coma CT brain iffuse subarachnoid hemorrhage CTA brain/neck 3tortuous right vertebral artery with moderate stenosis. There is 5-7 mm fusiform dilatation of the vertebral artery concerning for aneurysm. Patient will need ventriculostomy Discussed with Dr. Jimenez who plans to proceed with angiogram in a.m. Nimodipine 60 mg by mouth every 4 hours Nicardipine target systolic blood pressure 110 to 130 Keppra 500 g IV every 12 hours Pravastatin 40 mg by mouth daily No anticoagulants Monitor serum sodium and avoid hyponatremia Target PaCO2 35-40 Tylenol/cooling for temp >100.4. Obtain portable EEG Propofol for sedation. Fentanyl for analgosedation frequent neuro checks RESP: Acute respiratory failure Tobacco abuse Obtained chest x-ray. ET tube in satisfactory position above the sofi. Lungs are clear. Ventilator bundle PRVC DuoNeb every 6 hours. Albuterol every 2 hours as needed. No ventilatory weaning until patient is stabilized wean fio2 for goal spo2 > 90% CV: continue art line for hemodynamic monitoring. Nicardipine to maintain systolic blood pressure 110-130. 0.9 NaCl with 20 mEq of KCl per liter at 80 mL per hour Troponin negative at outside hospital EKG normal sinus rhythm intraventricular conduction delay with no acute ST or T- wave abnormalities. Obtain 2-D echo GI: Nothing by mouth. OGT tube to low intermittent wall suction. FEN/RENAL: Chandra catheter in place. Monitor intake and output. Monitor electrolytes. Replace electrolytes as indicated per ICU electrolyte replacement protocol. Received IV contrast 02/10. Avoid nephrotoxins. Creatinine 0.71 at outside hospital. ID: Monitor for signs and symptoms of infection HEME: Monitor CBC He was not on anticoagulants. coags normal /. MSK: Gout to bring in medication list ENDO: Monitor bedside glucose and initiate low-dose insulin sliding scale as indicated PROPH: SCDs and teds for DVT prophylaxis. No pharmacologic DVT prophylaxis due to acute subarachnoid hemorrhage. Protonix 40 mg IV daily for stress ulcer prophylaxis. ACCESS: Left radial art line placed 8/3 #2. Right subclavian central venous line placed 8/3 #2 Patient has acute subarachnoid hemorrhage and is at risk for further decompensation, rebleeding. He is hypertensive and in need of emergent blood pressure control and close hemodynamic monitoring. Critical care time 58 minutes exclusive of separately billable procedures. Chava Heaton MD Feb 11, 2017 14:25
[2017-02-11] MEDS ORDERED: IODIXANOL 320 MG/ML 50 ML VIAL (for RAD SPEC) I-ARTERIAL ONE (16:05)
--- NOTE | 2017-02-11 16:42 | PD.RAD ---
Post Procedure Progress Note Pre Procedure Diagnosis: (1) Subarachnoid hemorrhage Post Procedure Diagnosis: (1) Subarachnoid hemorrhage Procedure Date: Feb 11, 2017 Supervising Radiologist: Roberto Esquivel Proceduralist/Assist: Francisca Mercer, RT(R), Nancy Wang RT(R)() Anesthesia: Conscious Sedation Plan of Activity Patient to Unit: Critical Care Patient Condition: Fair Additional Comments: Angiogram confirms CTA findings. Nearly fusiform but suspect very broad based distal right vertebral artery aneurysm with dome:neck ratio of 0.29. There is peaking of the aneurysm dome. No other aneurysms noted. See PACS Report for procedural detail/treatment Roberto Esquivel MD Feb 11, 2017 16:42
[2017-02-11 17:10] LABS: BLOOD GAS BASE EXCESS -5.1 mmol/L (-2-2); BLOOD GAS HCO3 19 mmol/L (22-26); BLOOD GAS METHEMOGLOBIN 1.1 % (0-2); BLOOD GAS O2 HGB SATURATION 97 % (90-100); BLOOD GAS PCO2 29 mmHg (38-42); BLOOD GAS PO2 176 mmHg (61-120); BLOOD GAS TOTAL HGB 12.2 G/DL (12.0-16.0); CRITICAL VALUE NO; OXYGEN DEVICE VENT; TEMP CORR TO 98.6
[2017-02-11 17:11] LABS: DRAW SITE ALINE; FIO2 40 %; STAT NO; VENT SETTINGS PRVC/20/550/5/IIT
--- NOTE | 2017-02-11 17:41 | RADRPT ---
EXAM DATE/TIME: 02/11/2017 14:54 [place] COMPARISON: No previous studies available for comparison. INDICATIONS : Patient is in need of a cerebral angiogram due to subarachnoid hemorrhage and aneurysm. MEDICAL HISTORY : History of seizures, HTN, hydrocephalus, gout. SURGICAL HISTORY : N/A ENCOUNTER: Initial ACUITY: 1 day PAIN SCORE: 0/10 LOCATION: Patient is vented. FLUORO TIME: 6.8 minutes IMAGE SERIES: 11 ACCESS SITE: Right Femoral artery CONTRAST: 128 cc Visipaque (iodixanol) PROCEDURE : 1. Ultrasound-guided puncture of the access site. 2. Conscious sedation with continuous EKG and Oximetry monitoring. 3. Selective catheter placement in the right vertebral artery with cerebral angiography including 3- D rotational angiography 4. Selective catheter placement in the left vertebral artery which cerebral angiography 4. Selective catheter placement in the right internal carotid artery which cerebral angiography 4. Selective catheter placement in the left internal carotid artery which cerebral angiography The risks, benefits and alternatives to the procedure were explained and verbal and written consent w as obtained. The site was prepped in sterile fashion. Full sterile technique was used, including ca p, mask, sterile gloves and gown and a large sterile sheet. Hand hygiene and 2% chlorhexidine and/or betadine/alcohol prep was utilized per protocol for cutaneous antisepsis. The skin and subcutaneous tissues were infiltrated with local anesthetic solution. With ultrasound and fluoroscopic guidance the selected artery was punctured and a vascular sheath was placed. 4 Chadian ROMIE 2 catheter was advanced into the right vertebral artery and several angiography was performed. Rotational 3-D stool and atrophy was also performed. Catheter was then repositioned in to the right internal carotid artery with answered glandular tissue was performed. Catheter was then repositioned into the left internal carotid artery as well as atrophy was performed. Catheter was the n positioned into the left vertebral artery and cervical angiography was performed. Catheter was alcon lynette. The puncture site was closed with manual pressure and hemostasis was obtained. The patient tolerated the procedure well and there were no complications. Conscious sedation was performed with the prescribed dosages and duration as above in the presence of an independent trained radiology nurse to assist in the monitoring of the patient. EKG and oximetry remained stable throughout the procedure. FINDINGS: The vertebral arteries are nearly codominant although the left to artery is slightly larger in calibe r. There is a very broad-based slightly lobular aneurysm arising from the distal right vertebral tiesha ry just proximal to PICA origin which demonstrates peaking at the dome. Aneurysm base/neck measures a pproximately 8.5 mm. The aneurysm dome measures approximately 2.5 mm. Flow extends to the basilar art crystal which is patent. Bilateral posterior cerebral arteries are patent. No additional aneurysm or vasc ular malformation. Anterior circulation is unremarkable with patent internal carotid arteries with flow extending to pat ent bilateral middle cerebral and anterior simple arteries. No significant stenosis, aneurysm, or vas cular malformation. CONCLUSION: 1. Four-vessel cerebral angiography demonstrates a very broad-based slightly lobular distal right genie tebral artery aneurysm, as above. 2. No evidence for large vessel occlusion, aneurysm or AV malformation in the anterior circulation. Roberto Esquivel MD on February 11, 2017 at 17:22 Board Certified Radiologist. This report was verified electronically.
[2017-02-11] MEDS ORDERED: diphenhydrAMINE HCL 50 MG/ML VIAL IV ONE (18:00)
[2017-02-11] MEDS ORDERED: FAMOTIDINE 20 MG/2 ML VIAL IV ONE (18:00)
--- NOTE | 2017-02-11 18:55 | ECHRPT ---
Indication: sob CONCLUSIONS The left ventricular systolic function is normal with an estimated ejection fraction in the range of 55-60%. Mild concentric left ventricular hypertrophy. There is assymetric septal hypertrophy. Doppler parameters are consistent with impaired left ventricular relaxtion (grade 1 diastolic dysfun ction). Trace mitral valve regurgitation. BP: 124 / 70 HR: 72 Rhythm: MEASUREMENTS (Male / Female) Normal Values Technical Quality: 2D ECHO LV Diastolic Diameter PLAX 5.0 cm 4.2 - 5.9 / 3.9 - 5.3 cm LV Systolic Diameter PLAX 3.8 cm IVS Diastolic Thickness 1.6 cm 0.6 - 1.0 / 0.6 - 0.9 cm LVPW Diastolic Thickness 1.1 cm 0.6 - 1.0 / 0.6 - 0.9 cm LV Relative Wall Thickness 0.5 RV Internal Dim ED PLAX 2.6 cm M-MODE Aortic Root Diameter MM 3.5 cm LA Systolic Diameter MM 3.9 cm LA Ao Ratio MM 1.1 AV Cusp Separation MM 2.0 cm DOPPLER Mitral E Point Velocity 59.7 cm/s Mitral A Point Velocity 77.4 cm/s Mitral E to A Ratio 0.8 FINDINGS LEFT VENTRICLE Mild concentric left ventricular hypertrophy. There is assymetric septal hypertrophy. The left ventricular systolic function is normal with an estimated ejection fraction in the range of 55-60%. No regional wall motion abnormalities are present. Doppler parameters are consistent with impaired left ventricular relaxtion (grade 1 diastolic dysfun ction). RIGHT VENTRICLE Normal right ventricular size and systolic function. LEFT ATRIUM The left atrial size is upper limits of normal. RIGHT ATRIUM The right atrial size is normal. ATRIAL SEPTUM The interatrial septum not well visualized. MITRAL VALVE Structurally normal mitral valve. Trace mitral valve regurgitation. No mitral valve stenosis. AORTIC VALVE Probably trileaflet No aortic valve regurgitation. No aortic valve stenosis. TRICUSPID VALVE Structurally normal tricuspid valve. No tricuspid regurgitation. No tricuspid valve stenosis. PULMONARY VALVE The pulmonary valve is not well visualized. PERICARDIUM No pericardial effusion. Randy Spence DO (Electronically Signed) Final Date:11 February 2017 18:54
[2017-02-11] MEDS: PRAVASTATIN SOD 40 MG TAB OG-TUBE SCH (19:57)
[2017-02-11] MEDS: niCARdipine INJ 25 MG in SODIUM CHLOR 0.9% 250 ML INJ 250 ML IV SCH (19:58)
--- NOTE | 2017-02-11 20:23 | HHI.DCPOC ---
Discharge Care Plan Diagnosis: (1) Subarachnoid hemorrhage Your Health Problems Are: Loss of Movements Additional Problems Intubated Goals to Promote Your Health * To prevent worsening of your condition and complications * To maintain your health at the optimal level Directions to Meet Your Goals Take your medications as prescribed Follow your dietary instruction Follow activity as directed Keep your appointments as scheduled Take your immunizations and boosters as scheduled If your symptoms worsen call your PCP, if no PCP go to Urgent Care Center or Emergency Room Smoking is Dangerous to Your Health. Avoid second hand smoke Call the 24-hour hour crisis hotline for domestic abuse at Dex Jimenez MD Feb 11, 2017 20:23
--- NOTE | 2017-02-11 20:29 | HHI.DS ---
Discharge Summary Admission Date Feb 10, 2017 at 17:50 Discharge Date: Feb 11, 2017 Admitting Diagnosis large subarachnoid bleed, respiratory failure (1) Respiratory failure Diagnosis: Secondary ICD Code: J96.90 (2) Subarachnoid hemorrhage Diagnosis: Principal ICD Code: I60.9 Brief History Patient is a 54-year-old male transferred from [facility] for treatment of subarachnoid hemorrhage. The patient was reportedly at work this morning when he complained of a severe headache. He was taken to an office and given aspirin and some fluids. His mental status continued to decline. He was intubated by EMS in route to the emergency room with seizure activity and decerebrate posturing reported. He was GCS 3 in the [facility] emergency room initially with pupils reportedly 5 mm nonreactive. The patient reportedly began flexing or localizing with his upper extremities at some point in time in the emergency room. He was given 1000 mg of Keppra. Patient's blood pressure was 200/129 initially in the emergency room. The patient's initial CT of the head revealed a large amount of diffuse subarachnoid hemorrhage. He was transferred to [facility] Emergency room for further evaluation. CBC/BMP: 02/11/17 0330 02/11/17 0330 Significant Findings Laboratory Tests Test 02/10/17 02/11/17 02/11/17 02/11/17 21:20 03:30 03:55 11:41 Blood Gas HCO3 21 mmol/L 21 mmol/L (22-26) (22-26) Blood Gas Base Excess -2.8 mmol/L -2.5 mmol/L (-2-2) (-2-2) Arterial Blood Partial 33 mmHg (38-42) 35 mmHg (38-42) 28 mmHg (38-42) Pressure CO2 Arterial Blood Oxygen Content 20.3 Vol % (12.0-20.0) Red Blood Count 4.46 MIL/MM3 (4.50-5.90) Mean Platelet Volume 6.4 FL (7.0-11.0) Neutrophils (%) (Auto) 79.4 % (16.0-70.0) Monocytes (%) (Auto) 8.7 % (0.0-8.0) Activated Partial 32.4 SEC Thromboplast Time (24.3-30.1) Chloride Level 109 MEQ/L (98-107) Estimat Glomerular Filtration 78 ML/MIN (>89) Rate Random Glucose 117 MG/DL (74-106) Calcium Level 7.9 MG/DL (8.5-10.1) Phosphorus Level 2.0 MG/DL (2.5-4.9) Aspartate Amino Transf 13 U/L (15-37) (AST/SGOT) Total Protein 5.9 GM/DL (6.4-8.2) Albumin 2.8 GM/DL (3.4-5.0) Arterial Blood pH 7.48 (7.380-7.420) Arterial Blood Partial 133 mmHg Pressure O2 (61-120) Test 02/11/17 16:55 Blood Gas HCO3 19 mmol/L (22-26) Blood Gas Base Excess -5.1 mmol/L (-2-2) Arterial Blood pH 7.43 (7.380-7.420) Arterial Blood Partial 29 mmHg (38-42) Pressure CO2 Arterial Blood Partial 176 mmHg Pressure O2 (61-120) Imaging Last Impressions Chest X-Ray 02/11/17 0000 Signed Impressions: Service Date/Time: Saturday, February 11, 2017 05:09 - CONCLUSION: 1. Left lower lobe atelectasis versus pneumonia. The findings are improved when compared with the prior exam. Daniele Harman MD Cerebral Arteriogram 02/11/17 0000 Signed Impressions: Service Date/Time: Saturday, February 11, 2017 14:54 - CONCLUSION: 1. Four-vessel cerebral angiography demonstrates a very broad-based slightly lobular distal right vertebral artery aneurysm, as above. 2. No evidence for large vessel occlusion, aneurysm or AV malformation in the anterior circulation. Roberto Esquivel MD Neck CTA 02/10/17 1622 Signed Impressions: Service Date/Time: February 16:53 - CONCLUSION: 1. ET tube appears to terminate at the sofi. 2. No significant flow-limiting carotid artery stenosis or dissection. 3. Asymmetric vertebral arteries with slightly larger caliber left vertebral artery. There is likely moderate stenosis of the distal right vertebral artery near the vertebrobasilar junction with poststenotic dilatation rather than aneurysm. Roberto Esquivel MD Head CTA 02/10/17 0000 Signed Impressions: Service Date/Time: February 16:53 - CONCLUSION: 1. No evidence for large vessel occlusion. 2. Asymmetric distal vertebral arteries with small caliber right vertebral artery which is tortuous distally with apparent moderate stenosis. However, there is a 5 x 7 mm fusiform dilatation of the vertebral artery just beyond the focal stenosis which appears more prominent on this examination compared with the carotid CTA examination and is more than expected for simple poststenotic dilatation and therefore concerning for aneurysm. Further evaluation may be performed with cerebral angiography as indicated. Roberto Esquivel MD Head CT 02/10/17 0000 Signed Impressions: Service Date/Time: February 16:49 - CONCLUSION: 1. Extensive subarachnoid hemorrhage. CTA pending to assess for aneurysm. Say Bassett MD Hospital Course Patient transferred from [facility] with significant diffuse subarachnoid hemorrhage. Initially presents with pupils midrange nonreactive, extensor posturing. Initial blood pressure systolic 200. Patient intubated due to respiratory failure. Initial CT scan with significant diffuse subarachnoid hemorrhage including basilar cisterns and bilateral sylvian fissure. No significant hydrocephalus. Initial CT angiogram with fusiform dilation distal vertebral artery CT angiogram results 02/11/2017 with wide-based irregular distal vertebral artery aneurysm. Discussed with interventional radiology. Recommendations for transfer to tertiary care facility for endovascular procedure. Prior to discharge, patient neurologic exam improving, pupils 2 mm nonreactive, arousing to voice and following commands. Pt Condition on Discharge: Stable Discharge Disposition: Trnsfr to Other Facility Discharge Instructions DIET: Follow Instructions for: Nothing By Mouth ADDITIONAL Diet Instructions: Nothing by mouth ACTIVITIES You can perform: Bath Only-No Shower Dex Jimenez MD Feb 11, 2017 20:29
== END 2017-02-11 23:59 | disposition short-term general hospital (02) | DRG 64 ==
LOC: NEPC 16:03 → N03B 17:50 → EDBD 17:50
PROVIDERS: ADMIT Neurological Surgery; ATTEND Neurological Surgery
PROC: 5A1945Z Respiratory Ventilation, 24-96 Consecutive Hours (ICD-10-PCS; principal; 2017-02-10)
PROC: 03HY32Z Insertion of Monitoring Device into Upper Artery, Percutaneous Approach (ICD-10-PCS; 2017-02-10)
PROC: 02HV33Z Insertion of Infusion Device into Superior Vena Cava, Percutaneous Approach (ICD-10-PCS; 2017-02-10)
PROC: B31RYZZ Fluoroscopy of Intracranial Arteries using Other Contrast (ICD-10-PCS; 2017-02-11)
DX: I60.9 Nontraumatic subarachnoid hemorrhage, unspecified (principal); J96.00 Acute respiratory failure, unspecified whether with hypoxia or hypercapnia; R40.20 Unspecified coma; G40.89 Other seizures; R40.2431 Glasgow coma scale score 3-8, in the field [EMT or ambulance]; M10.9 Gout, unspecified; I10 Essential (primary) hypertension; F17.210 Nicotine dependence, cigarettes, uncomplicated; I72.6 Aneurysm of vertebral artery; G91.4 Hydrocephalus in diseases classified elsewhere
CPT/HCPCS: 36224; 36226; 51702; 70450; 70496; 70498; 71010; 76937; 80053; 82805; 82948; 83735; 84100; 85025; 85610; 85730; 93005; 93306; 94002; 94003; 94640; 94664; 94770; 95819; C1769; C1887; C1894; C9113; J1200; J1953; J3010; J3480; J7050; Q9967